=== PATIENT | female | born 1990 | race Caucasian/White ===

== ENCOUNTER 2023-12-02 03:16 | Emergency (ER) | payer OTHER ==
[~2023-12-02] VITALS: Ht 157.5 cm; Wt 97.0 kg
[2023-12-02 03:39] VITALS: BP 130/72; PULSE 84; RESP 18; TEMP 98.4; O2SAT 99
[2023-12-02 04:44] LABS: CLARITY URINE CLEAR (CLEAR); COLOR URINE YELLOW (YELLOW); GLUCOSE URINE NEGATIVE (NEGATIVE); KETONES URINE NEGATIVE (NEGATIVE); LEUKOCYTE ESTERASE URINE NEGATIVE (NEGATIVE); NITRITE URINE NEGATIVE (NEGATIVE); OCCULT BLOOD URINE TRACE (NEGATIVE); PH URINE 6.5 (4.5-8.0); PROTEIN URINE NEGATIVE (NEGATIVE); SPECIFIC GRAVITY URINE 1.014 (1.005-1.030); UROBILINOGEN URINE 0.2 E.U./dL (0.2-1.0)
[2023-12-02 05:29] LABS: BACTERIA URINE NONE SEEN; RBC URINE 0-2 /hpf (0-2); SQUAMOUS EPITHELIAL CELL URINE FEW /lpf (RARE/1+); WBC URINE 0-2 /hpf (0-2)
[2023-12-02] MEDS ORDERED: IBUP-2028 PO (05:40)
[2023-12-02] MEDS: ACETAMINOPHEN 325MG TABLET PO ONE (06:02)
== END 2023-12-02 06:17 | disposition home or self-care (01) ==
LOC: ER 03:31
DX: M54.9 Dorsalgia, unspecified (principal)
CPT/HCPCS: 71045; 81003; 81025; 99284